=== PATIENT | female | born 1950 | race Caucasian/White ===

== ENCOUNTER 2024-11-26 15:23 | Outpatient (REF) | payer MEDICARE, BC, SELFPAY ==
[2024-11-26 21:44] LABS: HCT 45.7 % (36.0-46.0); HGB 15.1 g/dL (11.2-15.7); MCH 29.4 pg (27.0-33.0); MCV 89 fL (80-95); MPV 9.7 fL (8.0-11.0); Platelet Count 292 10^3/uL (130-400); RBC 5.14 10^6/uL (3.93-5.22); RDW-SD 42.5 fL; WBC 5.83 10^3/uL (4.4-10.8)
[2024-11-26 23:08] LABS: Calculated LDL 154 mg/dL (<100); Cholesterol 248 mg/dL (<200); HDL Cholesterol 76 mg/dL (40-60); TSH 1.59 uIU/mL (0.36-3.74); Triglyceride 91 mg/dL (<150)
== END 2024-11-26 15:24 | disposition home or self-care (01) ==
LOC: NCHCN 15:23
PROVIDERS: Visit Provider Family Medicine
DX: E04.9 Nontoxic goiter, unspecified (principal)
CPT/HCPCS: 80061; 85027; 84443